=== PATIENT | female | born 1955 | race Caucasian/White ===

== ENCOUNTER 2016-12-05 10:05 | Emergency (ER) | payer OTHER ==
[2016-12-05 11:33] LABS: Hematocrit 41 % (35-47); Hemoglobin 13.9 g/dl (12.0-16.0); Mean Corpuscular HGB Conc 34 g/dl (31-36); Mean Corpuscular Hemoglobin 32 pg (27-31); Mean Corpuscular Volume 96 fL (80-97); Mean Platelet Volume 8 um3 (7.4-10.4); Red Cell Distribution Width 14 % (10.5-15); White Blood Count 9.7 10^3/ul (3.5-10.8)
[2016-12-05 11:50] LABS: Albumin 4.3 g/dL (3.2-5.2); BUN/Creatinine Ratio 10.1 (8-20); C Reactive Protein 2.18 mg/L (< 5.00); Calcium 9.5 mg/dL (8.6-10.3); EGFR African American 82.9 (>60); EGFR Non-African American 64.5 (>60); Globulin 2.5 g/dL (2-4); Potassium 3.8 mmol/L (3.5-5.0); Total Bilirubin 0.5 mg/dL (0.2-1.0); Total Protein 6.8 g/dL (6.4-8.9)
[2016-12-05] MEDS ORDERED: Piperacillin/Tazobac (*) 3.375 GM ADDV.VIAL ONE (11:59)
--- NOTE | 2016-12-05 12:00 | RAD ---
INDICATION: Bug bite RIGHT ring finger proximal interphalangeal joint 3 days ago. Now bruised, red, swollen, and stiff. On antibiotics and Benadryl. COMPARISON: No relevant prior exams available on the [facility] for comparison. TECHNIQUE: AP, lateral, and oblique views RIGHT hand. REPORT: Fusiform swelling of the fourth finger most prominent at the level of the proximal phalanx and proximal interphalangeal joint. No subcutaneous emphysema or conspicuous foreign body evident. Preserved joint spaces. Negative for malalignment, fracture, or focal osseous lesion. IMPRESSION: Fusiform soft tissue swelling of the fourth finger without additional radiographic finding.
[2016-12-05 12:35] LABS: Urine Bacteria Absent (Absent); Urine Bilirubin Negative (Negative); Urine Glucose Negative (Negative); Urine Nitrite Negative (Negative)
[2016-12-05 13:27] VITALS: BP 100/59
--- NOTE | 2016-12-06 08:13 | ED ---
Mateusz Mosquera Alfonso, scribed for Emmanuel Cosme MD on 12/05/16 at 1043 . Upper Extremity Pain - HPI Summary HPI Summary: This patient is a 61 year old F presenting to [facility] with a chief complaint of right hand finger pain since three days ago. The CC is described as pruritic and burning. The patient rates the pain 4/10 in severity. Symptoms aggravated and alleviated by nothing. Patient reports swelling and bruising. - History of Current Complaint Chief Complaint: EDExtremityUpper Stated Complaint: RT HAND/FINGER INJURY Time Seen by Provider: 12/05/16 10:24 Hx Obtained From: Patient Onset/Duration: Started Days Ago - 3, Still Present Timing: Constant Severity Initially: Moderate Severity Currently: Moderate Pain Location: Finger - right hand Character: Burning - and puritic Aggravating Factor(s): Nothing Alleviating Factor(s): Nothing Associated Signs & Symptoms: Positive: Swelling, Bruising - Allergies/Home Medications Allergies/Adverse Reactions: Allergies Allergy/AdvReac Type Severity Reaction Status Date / Time No Known Allergies Allergy Verified 12/05/16 10:19 PMH/Surg Hx/FS Hx/Imm Hx Sensory History: Denies: Hx Deafness Opthamlomology History: Denies: Hx Legally Blind Infectious Disease History: Denies: Traveled Outside the [place] in Last 30 Days - Family History Known Family History: Positive: Diabetes - Sister - Social History Alcohol Use: Occasionally Substance Use Type: Reports: None Smoking Status (MU): Never Smoked Tobacco Review of Systems Positive: Other - Positive right hand finger pain and swelling. Positive: Bruising - Right hand finger All Other Systems Reviewed And Are Negative: Yes Physical Exam - Summary Physical Exam Summary: VITAL SIGNS: Reviewed. GENERAL: Patient is a well-developed and nourished (MALE OR FEMALE) who is lying comfortable in the stretcher. Patient is not in any acute respiratory distress. HEAD AND FACE: No signs of trauma. No ecchymosis, hematomas or skull depressions. No sinus tenderness. EYES: PERRLA, EOMI x 2, No injected conjunctiva, no nystagmus. EARS: Hearing grossly intact. Ear canals and tympanic membranes are within normal limits. MOUTH: Oropharynx within normal limits. NECK: Supple, trachea is midline, no adenopathy, no JVD, no carotid bruit, no c- spine tenderness, neck with full ROM. CHEST: Symmetric, no tenderness at palpation LUNGS: Clear to auscultation bilaterally. No wheezing or crackles. CVS: Regular rate and rhythm, S1 and S2 present, no murmurs or gallops appreciated. ABDOMEN: Soft, non-tender. No signs of distention. No rebound no guarding, and no masses palpated. Bowel sounds are normal. EXTREMITIES: Swelling at second finger. Reddish discoloration at distal first phalanx of second digit. Erythema at distal arm. NEURO: Alert and oriented x 3. No acute neurological deficits. Speech is normal and follows commands. SKIN: Dry and warm Triage Information Reviewed: Yes Vital Signs On Initial Exam: Initial Vitals Temp Pulse Resp BP Pulse Ox 99.2 F 89 16 123/77 98 12/05/16 10:19 12/05/16 10:19 12/05/16 10:19 12/05/16 10:19 12/05/16 10:19 Vital Signs Reviewed: Yes Diagnostics - Vital Signs Vital Signs Temp Pulse Resp BP Pulse Ox 12/05/16 10:19 99.2 F 89 16 123/77 98 - Laboratory Lab Results: Lab Results 12/05/16 12/05/16 12/05/16 Range/Units 11:22 11:22 11:22 WBC 9.7 (3.5-10.8) 10^3/ul RBC 4.30 (4.0-5.4) 10^6/ul Hgb 13.9 (12.0-16.0) g/dl Hct 41 (35-47) % MCV 96 (80-97) fL MCH 32 H (27-31) pg MCHC 34 (31-36) g/dl RDW 14 (10.5-15) % Plt Count 264 (150-450) 10^3/ul MPV 8 (7.4-10.4) um3 Neut % (Auto) 71.2 (38-83) % Lymph % (Auto) 20.4 L (25-47) % Citrus % (Auto) 5.3 (1-9) % Eos % (Auto) 2.0 (0-6) % Baso % (Auto) 1.1 (0-2) % Absolute Neuts (auto) 6.9 (1.5-7.7) 10^3/ul Absolute Lymphs (auto) 2.0 (1.0-4.8) 10^3/ul Absolute Monos (auto) 0.5 (0-0.8) 10^3/ul Absolute Eos (auto) 0.2 (0-0.6) 10^3/ul Absolute Basos (auto) 0.1 (0-0.2) 10^3/ul Absolute Nucleated RBC 0.01 10^3/ul Nucleated RBC % 0.1 Sodium 137 (133-145) mmol/L Potassium 3.8 (3.5-5.0) mmol/L Chloride 104 (101-111) mmol/L Carbon Dioxide 29 (22-32) mmol/L Anion Gap 4 (2-11) mmol/L BUN 9 (6-24) mg/dL Creatinine 0.89 (0.51-0.95) mg/dL Est GFR ( Amer) 82.9 (>60) Est GFR (Non-Af Amer) 64.5 (>60) BUN/Creatinine Ratio 10.1 (8-20) Glucose 90 (70-100) mg/dL Lactic Acid 1.6 (0.5-2.0) mmol/L Calcium 9.5 (8.6-10.3) mg/dL Total Bilirubin 0.50 (0.2-1.0) mg/dL AST 16 (13-39) U/L ALT 10 (7-52) U/L Alkaline Phosphatase 30 L (34-104) U/L Troponin I 0.00 (<0.04) ng/mL C-Reactive Protein 2.18 (< 5.00) mg/L Total Protein 6.8 (6.4-8.9) g/dL Albumin 4.3 (3.2-5.2) g/dL Globulin 2.5 (2-4) g/dL Albumin/Globulin Ratio 1.7 (1-3) Urine Color Urine Appearance Urine pH (5-9) Ur Specific [place] (1.010-1.030) Urine Protein (Negative) Urine Ketones (Negative) Urine Blood (Negative) Urine Nitrate (Negative) Urine Bilirubin (Negative) Urine Urobilinogen (Negative) Ur Leukocyte Esterase (Negative) Urine WBC (Auto) (Absent) Urine RBC (Auto) (Absent) Ur Squamous Epith Cells (Absent) Urine Bacteria (Absent) Urine Glucose (Negative) 12/05/16 Range/Units 12:05 WBC (3.5-10.8) 10^3/ul RBC (4.0-5.4) 10^6/ul Hgb (12.0-16.0) g/dl Hct (35-47) % MCV (80-97) fL MCH (27-31) pg MCHC (31-36) g/dl RDW (10.5-15) % Plt Count (150-450) 10^3/ul MPV (7.4-10.4) um3 Neut % (Auto) (38-83) % Lymph % (Auto) (25-47) % Citrus % (Auto) (1-9) % Eos % (Auto) (0-6) % Baso % (Auto) (0-2) % Absolute Neuts (auto) (1.5-7.7) 10^3/ul Absolute Lymphs (auto) (1.0-4.8) 10^3/ul Absolute Monos (auto) (0-0.8) 10^3/ul Absolute Eos (auto) (0-0.6) 10^3/ul Absolute Basos (auto) (0-0.2) 10^3/ul Absolute Nucleated RBC 10^3/ul Nucleated RBC % Sodium (133-145) mmol/L Potassium (3.5-5.0) mmol/L Chloride (101-111) mmol/L Carbon Dioxide (22-32) mmol/L Anion Gap (2-11) mmol/L BUN (6-24) mg/dL Creatinine (0.51-0.95) mg/dL Est GFR ( Amer) (>60) Est GFR (Non-Af Amer) (>60) BUN/Creatinine Ratio (8-20) Glucose (70-100) mg/dL Lactic Acid (0.5-2.0) mmol/L Calcium (8.6-10.3) mg/dL Total Bilirubin (0.2-1.0) mg/dL AST (13-39) U/L ALT (7-52) U/L Alkaline Phosphatase (34-104) U/L Troponin I (<0.04) ng/mL C-Reactive Protein (< 5.00) mg/L Total Protein (6.4-8.9) g/dL Albumin (3.2-5.2) g/dL Globulin (2-4) g/dL Albumin/Globulin Ratio (1-3) Urine Color Straw Urine Appearance Clear Urine pH 7.0 (5-9) Ur Specific [place] 1.002 L (1.010-1.030) Urine Protein Negative (Negative) Urine Ketones Negative (Negative) Urine Blood Negative (Negative) Urine Nitrate Negative (Negative) Urine Bilirubin Negative (Negative) Urine Urobilinogen Negative (Negative) Ur Leukocyte Esterase 1+ H (Negative) Urine WBC (Auto) Absent (Absent) Urine RBC (Auto) Absent (Absent) Ur Squamous Epith Cells Present H (Absent) Urine Bacteria Absent (Absent) Urine Glucose Negative (Negative) Result Diagrams: 12/05/16 11:22 12/05/16 11:22 Lab Statement: Any lab studies that have been ordered have been reviewed, and results considered in the medical decision making process. - Radiology Hand X-Ray Radiology Interpretation Completed By: Radiologist - Fusiform soft tissue swelling of the fourth finger without additional radiographic finding. Course/Dx - Course Course Of Treatment: This patient is a 61 year old F presenting to [facility] with a chief complaint of right hand finger pain since three days ago. The CC is described as pruritic and burning. The patient rates the pain 4/10 in severity. Symptoms aggravated and alleviated by nothing. Patient reports swelling and bruising. Assessment/Plan: Test results without any significant abnormalities. Hand X-ray reveals Fusiform soft tissue swelling of the fourth finger without additional radiographic finding. My physical exam shows swelling and erythema in the lateral aspect of the second digit. She does not have any tenderness in the palm and dorsal aspect around the area of the metacarpus. At this point, the patient was able to extend and flex the digit without pain. Therefore, I have a low suspicion for tenosynovitis. The patient was given one dose of Zosyn. At this point, I consulted Dr. Rosa who agrees with the assessment and plan for the patient and he will see the patient at his office tomorrow. The patient agrees with the discharge plan and she will follow up tomorrow with Dr. Alexander. Patient is hemodynamically stable and alert and oriented to person, place, and time. All questions were answered at patient satisfaction. There were no further complaints or concerns. - Diagnoses Differential Diagnosis/HQI/PQRI: Positive: Arthritis, Bursitis, Strain, Sprain Provider Diagnoses: Cellulitis - Physician Notifications Discussed Care of Patient With: Tha Alexander Time Discussed With Above Provider: 12:35 Instructed by Provider To: Other - Consulted Dr. Rosa (orthopedics) who recommends discharge with follow up at their office tomorrow. Discharge - Discharge Plan Condition: Stable Disposition: HOME Prescriptions: Cephalexin CAP* [Keflex 500 CAP*] 500 mg PO QID #40 cap Patient Education Materials: Cellulitis (ED) Referrals: Tha Alexander MD [Medical Doctor] - 1 Day [facility] [Outside] - 3 Days The documentation as recorded by the Mateusz mcginnis Alfonso accurately reflects the service I personally performed and the decisions made by Ba moreno Walter, MD.
== END 2016-12-05 13:27 | disposition home or self-care (01) ==
LOC: ED 10:05
DX: L03.011 Cellulitis of right finger (principal); M79.644 Pain in right finger(s)
CPT/HCPCS: 36415; 80053; 81003; 81015; 83605; 84484; 85025; 86140; 87040; 87086; 99283; J2543

== ENCOUNTER 2017-09-24 05:33 | Emergency (ER) | payer OTHER ==
[2017-09-24 05:44] VITALS: BP 135/84
[2017-09-24] MEDS ORDERED: predniSONE TAB* 20 MG PO ONE (06:02)
[2017-09-24] MEDS ORDERED: Clindamycin CAP* 150 MG PO ONE (06:02)
--- NOTE | 2017-09-24 06:11 | ED ---
Ryan Mosquera Rebecca, scribed for Chantell Gonzalez MD on 09/24/17 at 0601 . Skin Complaint - HPI Summary HPI Summary: Pt is a 62 y/o F who presents to ED c/o bug bite with erythema. She was bit by an insect on Sunday night (3 days ago) on the right lower leg. She was evaluated by [facility] yesterday morning where she had margins around the erythema drawn, given Keflex, and she is concerned that it is spreading beyond those margins. The area is erythematous, slightly pruritic, blistered and moderately painful. Pain on triage was ranked 6/10. Sx aggravated and alleviated by nothing. Denies fever. Has had 4 doses of Keflex. - History of Current Complaint Chief Complaint: EDRashSkinAbscess Time Seen by Provider: 09/24/17 05:54 Stated Complaint: RIGHT LEG PROBLEM Hx Obtained From: Patient Onset/Duration: Started Days Ago - 3 days, Still Present Current Severity: Moderate Pain Intensity: 6 Pain Scale Used: 0-10 Numeric Skin Location: Leg - Right lower leg Character: Pruritus, Pain, Redness Aggravating Symptom(s): Nothing Alleviating Symptom(s): Nothing Associated Signs & Symptoms: Negative Related History: Insect Bite/Sting - Allergy/Home Medications Allergies/Adverse Reactions: Allergies Allergy/AdvReac Type Severity Reaction Status Date / Time No Known Allergies Allergy Verified 12/05/16 10:19 PMH/Surg Hx/FS Hx/Imm Hx Musculoskeletal History: Denies: Hx Rheumatoid Arthritis, Hx Osteoporosis Sensory History: Denies: Hx Legally Blind, Hx Deafness Opthamlomology History: Denies: Hx Legally Blind Infectious Disease History: Yes Infectious Disease History: Denies: Traveled Outside the [place] in Last 30 Days - Family History Known Family History: Positive: Diabetes - Sister - Social History Alcohol Use: Occasionally Substance Use Type: Reports: None Smoking Status (MU): Never Smoked Tobacco Review of Systems Negative: Fever Positive: Other - Erythematous, pruritic, blistered region on the right lower leg All Other Systems Reviewed And Are Negative: Yes Physical Exam - Summary Physical Exam Summary: VITAL SIGNS: Reviewed. GENERAL: ~Patient is a well-developed and nourished female who is lying comfortable in the stretcher. Patient is not in any acute respiratory distress. HEAD AND FACE: No signs of trauma. No ecchymosis, hematomas or skull depressions. No sinus tenderness. EYES: PERRLA, EOMI x 2, No injected conjunctiva, no nystagmus. EARS: Hearing grossly intact. Ear canals and tympanic membranes are within normal limits. MOUTH: Oropharynx within normal limits. CHEST: Symmetric, no tenderness at palpation LUNGS: Clear to auscultation bilaterally. No wheezing or crackles. CVS: Regular rate and rhythm, S1 and S2 present, no murmurs or gallops appreciated. EXTREMITIES: FROM in all major joints, no edema, no cyanosis or clubbing. NEURO: Alert and oriented x 3. No acute neurological deficits. Speech is normal and follows commands. SKIN: Dry and warm. 2 inch in diameter raised, erythematous area on the right lower leg with a blister in the middle. Triage Information Reviewed: Yes Vital Signs On Initial Exam: Initial Vitals Temp Pulse Resp BP Pulse Ox 99.1 F 73 16 135/84 99 09/24/17 05:41 09/24/17 05:41 09/24/17 05:41 09/24/17 05:41 09/24/17 05:41 Vital Signs Reviewed: Yes Diagnostics - Vital Signs Vital Signs Temp Pulse Resp BP Pulse Ox 09/24/17 05:41 99.1 F 73 16 135/84 99 - Laboratory Lab Statement: Any lab studies that have been ordered have been reviewed, and results considered in the medical decision making process. Course/Dx - Course Assessment/Plan: Pt is a 62 y/o F who presents to ED c/o bug bite with erythema. She was bit by an insect on Sunday night (3 days ago) on the right lower leg. She was evaluated by [facility] yesterday morning where she had margins around the erythema drawn, given Keflex, and she is concerned that it is spreading beyond those margins. The area is erythematous, slightly pruritic, blistered and moderately painful. Denies fever. Has had 4 doses of Keflex. Given that the pt most likely is having an allergic reaction, she will be treated with Prednisone. Will be given Clindamycin for possible/prophylaxis for secondary infection. - Diagnoses Provider Diagnoses: Insect bite, Allergic reaction Discharge - Sign-Out/Discharge Documenting (check all that apply): Discharge/Admit/Transfer - Discharge - Discharge Plan Condition: Stable Disposition: HOME Prescriptions: Clindamycin Cap(NF) [Clindamycin Cap 300 mg Cap(NF)] 300 mg PO Q6H #30 cap predniSONE TAB* [Deltasone TAB*] 40 mg PO DAILY #10 tab Patient Education Materials: Insect Bite or Sting (ED), General Allergic Reaction (ED) Referrals: Non Staff,Doctor [Primary Care Provider] - 3 Days Additional Instructions: RETURN TO ED FOR ANY NEW OR WORSENING SYMPTOMS. The documentation as recorded by the Ryan mcginnis Rebecca accurately reflects the service I personally performed and the decisions made by Lisa moreno Abdul, MD.
== END 2017-09-24 06:12 | disposition home or self-care (01) ==
LOC: ED 05:33
DX: S80.861A Insect bite (nonvenomous), right lower leg, initial encounter (principal); W57.XXXA Bitten or stung by nonvenomous insect and other nonvenomous arthropods, initial encounter; Y93.9 Activity, unspecified; Y92.9 Unspecified place or not applicable; T78.40XA Allergy, unspecified, initial encounter; X58.XXXA Exposure to other specified factors, initial encounter
CPT/HCPCS: 99282; A9270-GY; J7512